=== PATIENT | female | born 1975 | race Caucasian/White ===

== ENCOUNTER → 2016-07-02 | Day surgery (SDC) | payer OTHER ==
[~2016-07-02] MED LIST: ALPRAZolam 0.25 MG TAB ONE; BACITRACIN OINT 1 EACH PACKET TOPICAL ONE; LIDOCAINE 1% INJ 10MG/ML (20 ML MDV) ONE
--- NOTE | 2016-07-02 11:38 | PCN ---
DATE OF PROCEDURE: PREPROCEDURE DIAGNOSIS: Mammographic abnormality, right breast. No microcalcifications, but a nodularity. POSTPROCEDURE DIAGNOSIS: Mammographic abnormality, right breast. No microcalcifications, but a nodularity. PROCEDURE: Stereotactic core biopsy. SURGEON: Dr. Quiroz. ANESTHESIA: Local. PROCEDURE: The patient was taken to the stereotactic core unit and the area of concern in the right breast was localized. 1% lidocaine was used to anesthetize the area of the skin after it had been prepped with Betadine. Needle was driven to the correct coordinates and multiple core biopsies were obtained. Following this, a localizing marker was deployed. The patient tolerated the procedure in stable condition. Specimen sent to pathology. Patient will have postprocedure radiographs performed and will follow up with Dr. Quiroz.
--- NOTE | 2016-07-02 14:28 | MM ---
EXAMINATION TYPE: MG stereo VAD BX RT DATE OF EXAM: 07/02/2016 8:53 AM COMPARISON: NONE CLINICAL HISTORY: Abnormal mammogram TECHNIQUE: Stereotactic guided core biopsy of right breast. FINDINGS: The procedure of stereotactic guided core biopsy was explained to the patient. Benefits, alternatives, and risks were discussed. An informed consent was then obtained. The shortness pathway for biopsy was chosen. Shortness pathway was superior approach. The radiologist performed the localization, then surgeon, Dr. Richie Santizo performed the remainder of the procedure. A vacuum assisted biopsy gun was used to obtain multiple core samples. The patient tolerated the procedure well without any immediate complication. The patient was kept in the radiology department for short stay after the procedure and then discharged home in stable condition. Targeted calcifications are identified in specimen mammogram. Post biopsy mammogram shows the clip to appear in satisfactory position relative to the targeted area of concern on the preprocedure images. IMPRESSION: SUCCESSFUL, UNCOMPLICATED STEREOTACTIC GUIDED CORE BIOPSY OF AREA OF CONCERN IN THE right BREAST, FULL PATHOLOGY RESULTS TO FOLLOW. 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 Recommendation Follow up mammogram and ultrasound of the right breast in 6 months. SUZED
== END ==
LOC: RADMAMWWP 06:50
PROVIDERS: ATTEND Surgery
DX: D24.1 Benign neoplasm of right breast (principal); R92.8 Other abnormal and inconclusive findings on diagnostic imaging of breast; Z88.2 Allergy status to sulfonamides
CPT/HCPCS: 88305; 19081; A4648; J2001

== ENCOUNTER → 2018-09-15 | Outpatient (CLI) | payer OTHER ==
--- NOTE | 2018-09-19 09:56 | MM ---
Reason for exam: screening (asymptomatic). Last mammogram was performed 2 years and 3 months ago. History: Family history of breast cancer in 2 maternal aunts at age 40 and breast cancer in maternal grandmother. Benign MG stereo VAD BX RT of the right breast, July 02, 2016. Took hormonal contraceptives for 10 years. Physical Findings: A clinical breast exam by your physician is recommended on an annual basis and results should be correlated with mammographic findings. MG Screening Mammo w CAD Bilateral CC and MLO view(s) were taken. Prior study comparison: June 09, 2016, mammogram, performed at [facility]. June 09, 2016, ultrasound, performed at [facility]. June 03, 2016, mammogram, performed at [facility]. August 13, 2014, mammogram, performed at [facility]. The breast tissue is heterogeneously dense. This may lower the sensitivity of mammography. No suspicious abnormality. Right biopsy marker miramontes a stable mass. No significant changes when compared with prior studies. ASSESSMENT: Benign, BI-RAD 2 RECOMMENDATION: Routine screening mammogram of both breasts in 1 year. (3D mammogram recommended on subsequent exams for this patient)
== END | disposition home or self-care (01) ==
LOC: RADMAMWWP 13:35
PROVIDERS: ATTEND Obstetrics & Gynecology
DX: Z12.31 Encounter for screening mammogram for malignant neoplasm of breast (principal)
CPT/HCPCS: 77067

== ENCOUNTER → 2020-03-13 | Outpatient (CLI) | payer OTHER ==
--- NOTE | 2020-03-18 09:33 | MM ---
Reason for exam: screening (asymptomatic). Last mammogram was performed 1 year and 6 months ago. History: Family history of breast cancer in 2 maternal aunts at age 40 and breast cancer in maternal grandmother. Benign MG stereo VAD BX RT of the right breast, July 02, 2016. Took hormonal contraceptives for 10 years. Physical Findings: A clinical breast exam by your physician is recommended on an annual basis and results should be correlated with mammographic findings. MG Screening Mammo w CAD Bilateral CC and MLO view(s) were taken. Prior study comparison: September 15, 2018, bilateral MG screening mammo w CAD. June 09, 2016, mammogram, performed at [facility]. The breast tissue is heterogeneously dense. This may lower the sensitivity of mammography. There are benign appearing round calcifications in the right breast. Previous mammotome biopsy in the right breast at chronic nodularity. There is no discrete abnormality. ASSESSMENT: Benign, BI-RAD 2 RECOMMENDATION: Routine screening mammogram of both breasts in 1 year.
== END | disposition home or self-care (01) ==
LOC: RADMAMWWP 08:54
PROVIDERS: ATTEND Obstetrics & Gynecology
DX: Z12.31 Encounter for screening mammogram for malignant neoplasm of breast (principal)
CPT/HCPCS: 77067

== ENCOUNTER → 2022-10-15 | Outpatient (CLI) | payer OTHER ==
--- NOTE | 2022-10-17 17:12 | MM ---
Reason for Exam: Screening (asymptomatic). Last mammogram was performed 2 year(s) and 7 month(s) ago. Patient History: Menarche at age 14. First Full-Term at age 24. Hysterectomy at age 41. Patient used Hormonal Contraceptives for 10 years. 07/02/2016, Benign Core Biopsy on the right side. Maternal aunt had breast cancer, age 40. Risk Values: Angeles 5 year model risk: 1.1%. NCI Lifetime model risk: 10.2%. Prior Study Comparison: 06/09/2016 Screening Mammogram, [facility]. 09/15/2018 Bilateral Screening Mammogram, [facility]. 03/13/2020 Bilateral Screening Mammogram, [facility]. Tissue Density: The breast tissue is heterogeneously dense. This may lower the sensitivity of mammography. Findings: Analyzed By CAD. There is a bilaterally symmetric density remain unchanged. Chronic nodularity posterior upper outer quadrant right breast with microclip related to prior biopsy. Nodular focal asymmetry upper outer quadrant left breast also unchanged. There is no suspicious group of microcalcifications or new suspicious mass in either breast. Overall Assessment: Benign, BI-RAD 2 Management: Screening Mammogram of both breasts in 1 year. . Patient should continue monthly self-breast exams. A clinical breast exam by your physician is recommended on an annual basis. This exam should not preclude additional follow-up of suspicious palpable abnormalities. Note on Angeles scores and lifetime risk: 1. A Angeles score greater than 3% is considered moderate risk. If this is the case, consider specialist referral to assess eligibility for a risk reducing agent. 2. If overall lifetime risk for the development of breast cancer is 20% or higher, the patient may qualify for future screening with alternating mammogram and breast MRI. Electronically signed and approved by: Joan De Jesus M.D. Radiologist
== END | disposition home or self-care (01) ==
LOC: RADMAMWWP 16:45
PROVIDERS: ATTEND Family Medicine
DX: Z12.31 Encounter for screening mammogram for malignant neoplasm of breast (principal); Z80.3 Family history of malignant neoplasm of breast
CPT/HCPCS: 77067